=== PATIENT | male | born 1960 | race Caucasian/White ===

== ENCOUNTER 2019-03-15 12:20 | Emergency (ER) | payer MEDICARE, MEDICAID ==
[~2019-03-15] VITALS: Ht 165.1 cm; Wt 58.3 kg
[~2019-03-15 12:20] MED LIST: ATOR40TA72 PO; AZO1OS EACHEYE; BIMA2.5D EACHEYE; BRIM5DRO16 LEFTEYE; CARB-101 PO; DUTA0.5C16 PO; LEVO25TA7 PO; OMEP-50 PO; TERA5CAP4 PO
[2019-03-15 13:14] LABS: BASOPHILS # (AUTO) 0.1 X10'3 (0-0.2); BASOPHILS % (AUTO) 1.2 % (0-1); EOSINOPHILS # (AUTO) 0.1 X10'3 (0-0.9); EOSINOPHILS % (AUTO) 1.7 % (0-6); HEMATOCRIT 41.6 % (42.0-52.0); HEMOGLOBIN 14.3 g/dl (14.0-17.9); LYMPHOCYTES # (AUTO) 0.9 X10'3 (1.1-4.8); LYMPHOCYTES % (AUTO) 19.2 % (21-51); MEAN CORPUSCULAR HEMOGLOBIN 31.5 PG (27.0-31.0); MEAN CORPUSCULAR HGB CONC 34.3 g/dL (33.0-36.5); MEAN CORPUSCULAR VOLUME 91.8 FL (78-98); MONOCYTES # (AUTO) 0.4 X10'3 (0-0.9); MONOCYTES % (AUTO) 8.7 % (2-12); NEUTROPHILS # (AUTO) 3.4 X10'3 (1.8-7.7); NEUTROPHILS % (AUTO) 69.2 % (42-75); PLATELET COUNT 413 X10'3 (140-440); RED BLOOD COUNT 4.53 X10'6 (4.70-6.10); RED CELL DISTRIBUTION WIDTH 14.4 % (11.5-14.5); WHITE BLOOD COUNT 4.9 X10'3 (4.5-11.0)
[2019-03-15 13:25] LABS: ALANINE AMINOTRANSFERASE 35 U/L (12-78); ALBUMIN/GLOBULIN RATIO 1.2 (1.1-1.5); ALKALINE PHOSPHATASE 96 IU/L (46-116); ANION GAP 9 (8-16); ASPARTATE AMINO TRANSFERASE 25 U/L (10-37); BILIRUBIN,TOTAL 0.4 MG/DL (0.1-1.0); BLOOD UREA NITROGEN 6 MG/DL (7-18); BUN/CREATININE RATIO 6.7 (5.4-32.0); CALCIUM 9.2 MG/DL (8.5-10.1); CHLORIDE 101 MMOL/L (99-107); CREATININE 0.89 MG/DL (0.60-1.10); GLUCOSE 105 MG/DL (70-104); POTASSIUM 4.1 MMOL/L (3.5-5.1); SODIUM 135 MMOL/L (135-145); TOTAL CARBON DIOXIDE 24.7 MMOL/L (24-32); TOTAL PROTEIN 7.4 G/DL (6.4-8.2); eGFR 87 ML/MIN
--- NOTE | 2019-03-15 13:39 | NUR ---
pt states, i feel like im out there, having weird thoughts and singing old songs from high school. has been under stress lately and depression that he cant take his on a trip.
[2019-03-15 13:47] LABS: PARTIAL THROMBOPLASTIN TIME 26 SECONDS (22-32); PROTHROMBIN TIME 10.3 SECONDS (9.0-12.0)
--- NOTE | 2019-03-15 13:54 | NUR ---
PATIENT AMBULATED TO RESTROOM WITH STEADY GAIT. URINE SAMPLE COLLECTED AND SENT TO LAB.
[2019-03-15 14:36] LABS: CLARITY,URINE CLEAR (Clear); COLOR,URINE YELLOW (Yellow); GLUCOSE, URINE NEGATIVE (Neg); KETONES,URINE NEGATIVE (Neg); LEUKOCYTE ESTERASE ,URINE NEGATIVE (Neg); NITRITES, URINE NEGATIVE (Neg); OCCULT BLOOD,URINE NEGATIVE (Neg); PROTEIN,URINE NEGATIVE (Neg); UROBILINOGEN,URINE 0.2 E.U/dL (0.2-1.0)
[2019-03-15 14:39] LABS: UA COLLECTION TYPE CLN CATCH MIDSTREAM
[2019-03-15 14:52] VITALS: BP 146/97
== END 2019-03-15 14:53 | disposition home or self-care (01) ==
LOC: ER 12:20
DX: R41.82 Altered mental status, unspecified (principal); K21.9 Gastro-esophageal reflux disease without esophagitis; E03.9 Hypothyroidism, unspecified; Z79.899 Other long term (current) drug therapy; Z87.891 Personal history of nicotine dependence
CPT/HCPCS: 36415; 71045; 80053; 81003; 84484; 85025; 85610; 85730; 93005; 99284

== ENCOUNTER 2019-05-05 14:07 | Outpatient (CLI) | payer MEDICARE, MEDICAID ==
[2019-05-05] MEDS ORDERED: iohexol 350MG/ML 100ml bottle IV ONE (14:17)
== END 2019-05-05 23:59 | disposition home or self-care (01) ==
LOC: 64 CT 14:07
PROVIDERS: ATTEND Thoracic Surgery (Cardiothoracic Vascular Surgery)
DX: I71.2 Thoracic aortic aneurysm, without rupture (principal); Z87.891 Personal history of nicotine dependence
CPT/HCPCS: 71275; Q9967

== ENCOUNTER → 2020-01-21 | Day surgery (SDC) | payer MEDICARE, MEDICAID ==
[2020-01-19 10:20] LABS: BASOPHILS # (AUTO) 0.1 X10'3 (0-0.2); BASOPHILS % (AUTO) 1.2 % (0-1); EOSINOPHILS # (AUTO) 0.1 X10'3 (0-0.9); EOSINOPHILS % (AUTO) 1.7 % (0-6); HEMATOCRIT 42.1 % (42.0-52.0); HEMOGLOBIN 14.4 g/dl (14.0-17.9); LYMPHOCYTES # (AUTO) 1.2 X10'3 (1.1-4.8); LYMPHOCYTES % (AUTO) 29.8 % (21-51); MEAN CORPUSCULAR HEMOGLOBIN 31.1 PG (27.0-31.0); MEAN CORPUSCULAR HGB CONC 34.2 g/dL (33.0-36.5); MEAN PLATELET VOLUME 7.3 FL (7.4-10.4); MONOCYTES # (AUTO) 0.4 X10'3 (0-0.9); MONOCYTES % (AUTO) 10.5 % (2-12); NEUTROPHILS # (AUTO) 2.3 X10'3 (1.8-7.7); NEUTROPHILS % (AUTO) 56.8 % (42-75); PLATELET COUNT 396 X10'3 (140-440); RED BLOOD COUNT 4.63 X10'6 (4.70-6.10); RED CELL DISTRIBUTION WIDTH 13.4 % (11.5-14.5); WHITE BLOOD COUNT 4.1 X10'3 (4.5-11.0)
[2020-01-19 10:32] LABS: ALBUMIN 3.9 G/DL (3.4-5.0); ANION GAP 8 (8-16); BLOOD UREA NITROGEN 6 MG/DL (7-18); BUN/CREATININE RATIO 7.1 (5.4-32.0); CALCIUM 9.2 MG/DL (8.5-10.1); CHLORIDE 105 MMOL/L (99-107); CREATININE 0.85 MG/DL (0.60-1.10); GLUCOSE 67 MG/DL (70-104); POTASSIUM 4.1 MMOL/L (3.5-5.1); SODIUM 141 MMOL/L (135-145); TOTAL CARBON DIOXIDE 28.2 MMOL/L (24-32); eGFR > 90 ML/MIN
[2020-01-19 10:34] LABS: PARTIAL THROMBOPLASTIN TIME 27 SECONDS (22-32)
[2020-01-21] VITALS (8 sets, daily range): BP systolic 127–159; BP diastolic 80–92
[~2020-01-21] VITALS: Ht 165.1 cm; Wt 55.7 kg
[~2020-01-21] MED LIST changes: -DUTA0.5C16 PO; +DUTA0.5C17 PO; +HYDROcodone/acetaminophen 10/325mg tab PO PRN; +HYDROcodone/acetaminophen 5mg/325mg tablet PO PRN; +LIDOcaine 1% (10mg/ml)w/preservative injection 20ml MDV ONE; +LORazepam 0.5 MG tablet PO PRN; +OXAZEpam 15mg capsule PO PRN; +acetaminophen 325mg tablet PO PRN; +diphenhydrAMINE 25mg capsule PO PRN; +fentaNYL/PF 50MCG/1 ML 2ML syringe ONE; +iohexol 350 MG/ML 50ML vial IV ONE; +iohexol 350MG/ML 100ml bottle IV ONE; +midazolam 2 mg/2 ml injection ONE; +normal saline 1,000 ML IV SCH; +ondansetron/PF 4mg/2ml inj IV PRN; +proCHLORperazine 10 MG/2 ml inj IV PRN
== END | disposition home or self-care (01) ==
LOC: SSTAY O 05:27
PROVIDERS: ATTEND Internal Medicine Interventional Cardiology
DX: R94.39 Abnormal result of other cardiovascular function study (principal); I25.10 Atherosclerotic heart disease of native coronary artery without angina pectoris; I71.2 Thoracic aortic aneurysm, without rupture; E03.9 Hypothyroidism, unspecified; E78.49 Other hyperlipidemia; Z87.891 Personal history of nicotine dependence; Z79.899 Other long term (current) drug therapy; Z98.890 Other specified postprocedural states; Z72.89 Other problems related to lifestyle; Z79.01 Long term (current) use of anticoagulants; Z82.3 Family history of stroke; Z82.49 Family history of ischemic heart disease and other diseases of the circulatory system
CPT/HCPCS: 36415; 80048; 85025; 85610; 85730; 93458; 93567; 99152; 99153; C1769; C1894; J1644; J2001; J2250; J3010; J7030; Q0163; Q9967; 93005; A6258

== ENCOUNTER 2021-01-25 10:42 | Outpatient (CLI) | payer MEDICARE, MEDICAID ==
[~2021-01-25 10:42] MED LIST changes: -DUTA0.5C17 PO; +DUTA0.5C36 PO; -HYDROcodone/acetaminophen 10/325mg tab PO PRN; -HYDROcodone/acetaminophen 5mg/325mg tablet PO PRN; -LIDOcaine 1% (10mg/ml)w/preservative injection 20ml MDV ONE; -LORazepam 0.5 MG tablet PO PRN; -OXAZEpam 15mg capsule PO PRN; -acetaminophen 325mg tablet PO PRN; -diphenhydrAMINE 25mg capsule PO PRN; -fentaNYL/PF 50MCG/1 ML 2ML syringe ONE; -iohexol 350 MG/ML 50ML vial IV ONE; -iohexol 350MG/ML 100ml bottle IV ONE; -midazolam 2 mg/2 ml injection ONE; -normal saline 1,000 ML IV SCH; -ondansetron/PF 4mg/2ml inj IV PRN; -proCHLORperazine 10 MG/2 ml inj IV PRN
== END 2021-01-25 23:59 | disposition home or self-care (01) ==
LOC: RAD 10:42
PROVIDERS: ATTEND Student in an Organized Health Care Education/Training Program
DX: G93.89 Other specified disorders of brain (principal); Q28.2 Arteriovenous malformation of cerebral vessels
CPT/HCPCS: 70551

== ENCOUNTER 2021-03-04 06:42 | Emergency (ER) | payer MEDICARE, MEDICAID ==
[~2021-03-04] VITALS: Ht 170.2 cm; Wt 65.0 kg
[2021-03-04] MEDS ORDERED: levetiracetam inj 500 MG in normal saline 100ml IV soln 95 ML IV STA (06:45)
[2021-03-04] MEDS ORDERED: LORazepam 2 mg/ml vial IV ONE (06:45)
--- NOTE | 2021-03-04 06:57 | NUR ---
ARYAN MUHAMMAD, TECH, UNABLE TO OBTAIN EKG, PUT LEADS ON BUT PT MOVING CONSTANTLY IN BED. PREFERS TO LAY ON HIS SIDE.
--- NOTE | 2021-03-04 07:51 | NUR ---
PT TASNEEM AT BEDSIDE. PT IS SLEEPING ON MONITORS. REPORTS HE HAD A HEMORRHAGIC STROKE BACK IN OCT 2020, BASELINE HE KNOWS NAME HIS NAME, PLACE AT TIMES. WORKING ON MOBILITY WITH WALKING WITH CANE WITH PT. RIGHT HAND MAKES FIST AT TIMES. HE USES HIS LEFT HAND TO FEED/DRINK.
--- NOTE | 2021-03-04 07:55 | NUR ---
notified dr noriega present and hx of stroke/baseline. Need to st cath pt. Wants to hold off until labs are back, see if high white count.
[2021-03-04 07:56] LABS: BASOPHILS # (AUTO) 0.1 X10'3 (0-0.2); EOSINOPHILS % (AUTO) 0.9 % (0-6); HEMATOCRIT 37.2 % (42.0-52.0); HEMOGLOBIN 12.4 g/dl (14.0-17.9); LYMPHOCYTES # (AUTO) 0.7 X10'3 (1.1-4.8); LYMPHOCYTES % (AUTO) 13.2 % (21-51); MEAN CORPUSCULAR HEMOGLOBIN 28.6 PG (27.0-31.0); MEAN CORPUSCULAR HGB CONC 33.3 g/dL (33.0-36.5); MEAN CORPUSCULAR VOLUME 85.9 FL (78-98); MEAN PLATELET VOLUME 6.6 FL (7.4-10.4); MONOCYTES # (AUTO) 0.3 X10'3 (0-0.9); MONOCYTES % (AUTO) 5.9 % (2-12); NEUTROPHILS # (AUTO) 4.1 X10'3 (1.8-7.7); PLATELET COUNT 417 X10'3 (140-440); RED BLOOD COUNT 4.33 X10'6 (4.70-6.10); RED CELL DISTRIBUTION WIDTH 14.7 % (11.5-14.5); WHITE BLOOD COUNT 5.1 X10'3 (4.5-11.0)
[2021-03-04 08:15] LABS: ALANINE AMINOTRANSFERASE 26 U/L (12-78); ALBUMIN 3.7 G/DL (3.4-5.0); ALBUMIN/GLOBULIN RATIO 1.2 (1.1-1.5); ALKALINE PHOSPHATASE 110 IU/L (46-116); ANION GAP 11 (8-16); ASPARTATE AMINO TRANSFERASE 14 U/L (10-37); BILIRUBIN,TOTAL 0.2 MG/DL (0.1-1.0); BLOOD UREA NITROGEN 7 MG/DL (7-18); BUN/CREATININE RATIO 8.3 (5.4-32.0); CALCIUM 9.3 MG/DL (8.5-10.1); CHLORIDE 103 MMOL/L (99-107); CREATININE 0.84 MG/DL (0.60-1.10); GLUCOSE 117 MG/DL (70-104); POTASSIUM 4.3 MMOL/L (3.5-5.1); SODIUM 138 MMOL/L (135-145); TOTAL CARBON DIOXIDE 24.4 MMOL/L (24-32); TOTAL PROTEIN 6.9 G/DL (6.4-8.2); eGFR > 90 ML/MIN
[2021-03-04 08:19] LABS: CARBAMAZEPINE (TEGRETOL) 3.9 UG/ML (4.0-12.0)
[2021-03-04 08:25] LABS: ETHANOL < 0.010 GM/DL (0.0-0.010)
--- NOTE | 2021-03-04 08:30 | NUR ---
XRAY AT BEDSIDE WITH PT
[2021-03-04] MEDS ORDERED: carBAMazepine Ext. Release 200 MG TAB.ER.12H PO ONE (08:55)
--- NOTE | 2021-03-04 09:02 | NUR ---
IV DISCONTINUED, SITE CLEAR. REVIEWED DISCHARGE INSTRUCTIONS AND MEDICATION CHANGES WITH . [facility] CONTACTED FOR TRANSPORTATION.
[2021-03-04 09:06] VITALS: BP 118/74
--- NOTE | 2021-03-04 09:40 | NUR ---
PT IN ROOM WAITING WITH FOR [facility], PHARMACY SENT DOWN MEDICATION.
== END 2021-03-04 09:08 | disposition home or self-care (01) ==
LOC: ER 06:42
DX: G40.909 Epilepsy, unspecified, not intractable, without status epilepticus (principal); R41.82 Altered mental status, unspecified; E03.9 Hypothyroidism, unspecified; K21.9 Gastro-esophageal reflux disease without esophagitis; Z79.899 Other long term (current) drug therapy
CPT/HCPCS: 36415; 71045; 80053; 80156; 80320; 85025; 93005; 96374; 96375; 99285; J1953; J2060

== ENCOUNTER → 2021-07-26 | Outpatient (CLI) | payer MEDICARE, MEDICAID | END | disposition home or self-care (01) | LOC: RAD 12:39 | PROVIDERS: ATTEND Student in an Organized Health Care Education/Training Program | DX: Q28.2 Arteriovenous malformation of cerebral vessels (principal) | CPT/HCPCS: 70544 ==

== ENCOUNTER 2021-09-12 11:06 | Emergency (ER) | payer MEDICARE, MEDICAID ==
[~2021-09-12] VITALS: Ht 167.6 cm; Wt 65.0 kg
[2021-09-12] MEDS ORDERED: LORazepam 2 mg/ml vial IV ONE (11:15)
[2021-09-12] MEDS ORDERED: magnesium 2GM in 50ml NS 50 ML IV ONE (11:15)
[2021-09-12] MEDS ORDERED: normal saline 1000ML IV soln IVB ONE (11:15)
[2021-09-12 11:40] LABS: HEMOGLOBIN 13.3 g/dl (14.0-17.9)
[2021-09-12 11:42] LABS: BASOPHILS % (AUTO) 0.5 % (0-1); EOSINOPHILS % (AUTO) 0.5 % (0-6); HEMATOCRIT 39.1 % (42.0-52.0); LYMPHOCYTES # (AUTO) 0.7 X10'3 (1.1-4.8); LYMPHOCYTES % (AUTO) 14.3 % (21-51); MEAN CORPUSCULAR HEMOGLOBIN 29.6 PG (27.0-31.0); MEAN CORPUSCULAR HGB CONC 33.9 g/dL (33.0-36.5); MEAN CORPUSCULAR VOLUME 87.4 FL (78-98); MONOCYTES # (AUTO) 0.4 X10'3 (0-0.9); NEUTROPHILS # (AUTO) 3.9 X10'3 (1.8-7.7); NEUTROPHILS % (AUTO) 76.7 % (42-75); PLATELET COUNT 465 X10'3 (140-440); RED BLOOD COUNT 4.48 X10'6 (4.70-6.10); RED CELL DISTRIBUTION WIDTH 15.7 % (11.5-14.5); WHITE BLOOD COUNT 5.1 X10'3 (4.5-11.0)
[2021-09-12 12:14] LABS: ALANINE AMINOTRANSFERASE 26 U/L (12-78); ALBUMIN 3.9 G/DL (3.4-5.0); ALBUMIN/GLOBULIN RATIO 1.3 (1.1-1.5); ALKALINE PHOSPHATASE 99 IU/L (46-116); ANION GAP 14 (8-16); ASPARTATE AMINO TRANSFERASE 20 U/L (10-37); BILIRUBIN,TOTAL 0.3 MG/DL (0.1-1.0); BLOOD UREA NITROGEN 5 MG/DL (7-18); CALCIUM 8.9 MG/DL (8.5-10.1); CHLORIDE 99 MMOL/L (99-107); CREATININE 1.01 MG/DL (0.60-1.10); GLUCOSE 124 MG/DL (70-104); POTASSIUM 4.4 MMOL/L (3.5-5.1); SODIUM 133 MMOL/L (135-145); TOTAL CARBON DIOXIDE 19.9 MMOL/L (24-32); TOTAL PROTEIN 6.8 G/DL (6.4-8.2); eGFR 75 ML/MIN
[2021-09-12 12:15] LABS: CREATINE KINASE 124 U/L (39-308)
[2021-09-12 12:33] LABS: CARBAMAZEPINE (TEGRETOL) 7.3 UG/ML (4.0-12.0); PLATELET ESTIMATE INCREASED; POIKILOCYTOSIS 2+
[2021-09-12 12:34] LABS: ACANTHOCYTES 1+; BURR CELLS 1+; ELLIPTOCYTES 1+
--- NOTE | 2021-09-12 13:00 | NUR ---
Road test: Per , pt is at baseline. Weakness to R LE and R UE. Moderate weakness on L. Pt was able to transfer from sitting to standing.
--- NOTE | 2021-09-12 13:25 | NUR ---
Pt and given and understand d/c instructions. IV d/c'd, catheter was intact. Escorted to lobby via wheelchair.
[2021-09-12 14:03] VITALS: BP 124/81
== END 2021-09-12 13:20 | disposition home or self-care (01) ==
LOC: ER 11:06
DX: G40.909 Epilepsy, unspecified, not intractable, without status epilepticus (principal); K21.9 Gastro-esophageal reflux disease without esophagitis; E03.9 Hypothyroidism, unspecified; Z86.73 Personal history of transient ischemic attack (TIA), and cerebral infarction without residual deficits; Z86.69 Personal history of other diseases of the nervous system and sense organs; Z79.899 Other long term (current) drug therapy
CPT/HCPCS: 36415; 71045; 80053; 80156; 82550; 85008; 85025; 96365; 96366; 96375; 99284; J2060; J3475; J7030

== ENCOUNTER → 2021-10-18 | Emergency (ER) | payer MEDICARE, MEDICAID ==
[~2021-10-18] VITALS: Ht 162.6 cm; Wt 55.0 kg
[2021-10-18 10:45] VITALS: BP 130/82
--- NOTE | 2021-10-18 10:59 | NUR ---
Patient was brought in by em[facility] for c/o seizures. He did not hit his head or had any trauma. He is alert but is post ictal. MD saw him and has discharged the patient at this time. Vital signs are WNL. Patient is following commands and responding well.
== END | disposition home or self-care (01) ==
LOC: ER 10:37
DX: G40.909 Epilepsy, unspecified, not intractable, without status epilepticus (principal); K21.9 Gastro-esophageal reflux disease without esophagitis; E03.9 Hypothyroidism, unspecified; Z86.73 Personal history of transient ischemic attack (TIA), and cerebral infarction without residual deficits; Z86.69 Personal history of other diseases of the nervous system and sense organs; Z79.899 Other long term (current) drug therapy
CPT/HCPCS: 99283